=== PATIENT | female | born 1960 | race Caucasian/White ===

== ENCOUNTER 2018-03-16 09:04 | Inpatient (IN) | payer OTHER ==
[~2018-03-16] VITALS: Ht 160 cm; Wt 71.9 kg
[2018-03-16 09:10] VITALS: Ht 160 cm; Wt 71.9 kg
[2018-03-16 11:18] LABS: BASOPHIL % 0.5 % (0-2); PLATELET COUNT 209 x10^3mcL (130-400); RED CELL DISTRIBUTION WIDTH 13.3 % (11.5-14.5)
[2018-03-16 11:25] LABS: UA SPECIFIC GRAVITY 1.015 (1.005-1.035); microscopic required? YES; urine erythrocyte 2+ (NEGATIVE)
[2018-03-16 11:38] LABS: AMPHETAMINE QUAL UR NONE DETECTED (NEG <=1000)
[2018-03-16 11:45] LABS: FREE T4 1.05 ng/dL (0.76-1.46); FREE THYROXINE INDEX 2.6 ug/dL (1.4-4.5); T4(THYROXINE) 7.5 ug/dL (4.7-13.3)
[2018-03-16 12:10] LABS: T3 TOTAL 1.39 ng/mL
[2018-03-16 12:15] LABS: CHOLESTEROL/HDL RATIO 3.6; MAGNESIUM 2.1 mg/dL (1.8-2.4); PHOSPHOROUS 3.4 mg/dL (2.5-4.9)
[2018-03-16 12:17] LABS: CALCIUM 8.8 mg/dL (8.5-10.1); CARBON DIOXIDE 24.6 mmol/L (21-32); CHLORIDE SERUM 108 mmol/L (98-107); CREATININE SERUM 0.6 mg/dL (0.6-1.0); GFR1 > 60 mL/min; GLUCOSE SERUM 96 mg/dL (74-106); POTASSIUM SERUM 3.9 mmol/L (3.5-5.1); SODIUM SERUM 145 mmol/L (136-145)
[2018-03-16 12:19] LABS: ALBUMIN 3.6 g/dL (3.4-5.0); ALKALINE PHOSPHATASE 105 U/L (46-116); ALT/SGPT 22 U/L (14-59); AST/SGOT 21 U/L (15-37); BILIRUBIN TOTAL 0.42 mg/dL (0.20-1.00); TOTAL PROTEIN, SERUM 7.3 g/dL (6.4-8.2)
[2018-03-16 12:46] VITALS: BP 156/69
[2018-03-16] MEDS ORDERED: HYDROCHLOROTHIA25 MG PO (16:28)
[2018-03-16] MEDS ORDERED: AMLODIPINE BESYL5 M2 PO (16:29)
[2018-03-16] MEDS ORDERED: LOSARTAN POTASS25 M1 PO (16:30)
[2018-03-16] MEDS ORDERED: SIMVASTATIN10 M1 PO (16:31)
[2018-03-16 17:44] VITALS: BP 143/69
[2018-03-16 20:18] VITALS: BP 127/56
[2018-03-17 05:24] VITALS: BP 138/71
[2018-03-17 06:35] LABS: BASOPHIL % 0.6 % (0-2); PLATELET COUNT 199 x10^3mcL (130-400); RED CELL DISTRIBUTION WIDTH 13.4 % (11.5-14.5)
[2018-03-17 07:29] LABS: CARBON DIOXIDE 26.7 mmol/L (21-32); CHLORIDE SERUM 110 mmol/L (98-107); CREATININE SERUM 0.7 mg/dL (0.6-1.0); GFR1 > 60 mL/min; GLUCOSE SERUM 86 mg/dL (74-106); POTASSIUM SERUM 3.7 mmol/L (3.5-5.1); SODIUM SERUM 142 mmol/L (136-145)
[2018-03-17 07:30] LABS: CALCIUM 8.3 mg/dL (8.5-10.1)
[2018-03-17 08:31] VITALS: BP 111/65
[2018-03-17 09:31] VITALS: BP 111/65
[2018-03-17] MEDS ORDERED: LEVAQUIN750 MG PO (10:05)
[2018-03-17] MEDS ORDERED: LAC PO (10:06)
== END 2018-03-17 11:40 | disposition home or self-care (01) | DRG 203 ==
LOC: ED 09:04 → DU 10:08
PROVIDERS: Emergency Medicine; Family Medicine
DX: M94.0 Chondrocostal junction syndrome [Tietze] (principal); N17.0 Acute kidney failure with tubular necrosis; N39.0 Urinary tract infection, site not specified; I10 Essential (primary) hypertension; R31.29 Other microscopic hematuria; E78.5 Hyperlipidemia, unspecified; R73.03 Prediabetes; Z68.28 Body mass index [BMI] 28.0-28.9, adult
CPT/HCPCS: 83880; 84439; J0696; J3010; J7030; Q0092

== ENCOUNTER 2019-03-28 09:28 | Emergency (ER) | payer OTHER ==
[~2019-03-28] VITALS: Ht 162.6 cm; Wt 74.8 kg
[~2019-03-28 09:28] MED LIST: AMLODIPINE BESYL5 M2 PO; HYDROCHLOROTHIA25 MG PO; LAC PO; LEVAQUIN750 MG PO; LOSARTAN POTASS25 M1 PO; SIMVASTATIN10 M1 PO
[2019-03-28 09:51] VITALS: Ht 162.6 cm; Wt 74.8 kg
[2019-03-28 11:50] VITALS: BP 142/79
== END 2019-03-28 11:50 | disposition home or self-care (01) ==
LOC: ED 09:28
DX: S29.8XXA Other specified injuries of thorax, initial encounter (principal); I10 Essential (primary) hypertension; E78.00 Pure hypercholesterolemia, unspecified; Z98.890 Other specified postprocedural states; W01.0XXA Fall on same level from slipping, tripping and stumbling without subsequent striking against object, initial encounter; Y93.89 Activity, other specified; Y92.89 Other specified places as the place of occurrence of the external cause; Y99.8 Other external cause status
CPT/HCPCS: J1885

== ENCOUNTER 2019-06-27 06:02 | Emergency (ER) | payer MEDICAID ==
[~2019-06-27] VITALS: Ht 157.5 cm; Wt 73.5 kg
[2019-06-27 06:06] VITALS: Ht 157.5 cm; Wt 73.5 kg
[2019-06-27 07:04] LABS: BASOPHIL % 0.5 % (0-2); PLATELET COUNT 197 x10^3mcL (130-400); RED CELL DISTRIBUTION WIDTH 13.6 % (11.5-14.5)
[2019-06-27 07:16] LABS: CALCIUM 8.5 mg/dL (8.5-10.1); CARBON DIOXIDE 24.8 mmol/L (21-32); CHLORIDE SERUM 109 mmol/L (98-107); CREATININE SERUM 0.8 mg/dL (0.6-1.0); GFR1 > 60 mL/min; GLUCOSE SERUM 127 mg/dL (74-106); POTASSIUM SERUM 3.3 mmol/L (3.5-5.1); SODIUM SERUM 143 mmol/L (136-145)
[2019-06-27 07:20] LABS: ALBUMIN 3.4 g/dL (3.4-5.0); ALKALINE PHOSPHATASE 87 U/L (46-116); ALT/SGPT 17 U/L (14-59); AST/SGOT 11 U/L (15-37); BILIRUBIN TOTAL 0.39 mg/dL (0.20-1.00)
[2019-06-27 08:32] VITALS: BP 130/65
== END 2019-06-27 08:32 | disposition home or self-care (01) ==
LOC: ED 06:02
PROVIDERS: Emergency Medicine
DX: H81.10 Benign paroxysmal vertigo, unspecified ear (principal); I10 Essential (primary) hypertension; E78.00 Pure hypercholesterolemia, unspecified
CPT/HCPCS: J2765; J7030

== ENCOUNTER 2019-08-06 22:35 | Emergency (ER) | payer OTHER ==
[~2019-08-06] VITALS: Ht 172.7 cm; Wt 72.6 kg
[2019-08-06 22:41] VITALS: Ht 172.7 cm; Wt 72.6 kg
[2019-08-07 01:59] LABS: BASOPHIL % 0.2 % (0-2); PLATELET COUNT 204 x10^3mcL (130-400); RED CELL DISTRIBUTION WIDTH 12.3 % (11.5-14.5)
[2019-08-07 02:10] LABS: CALCIUM 8.7 mg/dL (8.5-10.1); CARBON DIOXIDE 28.4 mmol/L (21-32); CHLORIDE SERUM 105 mmol/L (98-107); CREATININE SERUM 0.8 mg/dL (0.6-1.0); GFR1 > 60 mL/min; GLUCOSE SERUM 118 mg/dL (74-106); POTASSIUM SERUM 4.1 mmol/L (3.5-5.1); SODIUM SERUM 141 mmol/L (136-145)
[2019-08-07 02:16] LABS: ALBUMIN 3.8 g/dL (3.4-5.0); ALKALINE PHOSPHATASE 98 U/L (46-116); ALT/SGPT 18 U/L (14-59); AST/SGOT 18 U/L (15-37); BILIRUBIN TOTAL 0.39 mg/dL (0.20-1.00); HDL CHOLESTEROL 44 mg/dL (40-60); TOTAL PROTEIN, SERUM 7.7 g/dL (6.4-8.2)
[2019-08-07 02:17] LABS: CHOLESTEROL 203 mg/dL (<200)
[2019-08-07 03:50] VITALS: BP 136/63
== END 2019-08-07 03:50 | disposition home or self-care (01) ==
LOC: ED 22:35
PROVIDERS: Emergency Medicine
DX: R42 Dizziness and giddiness (principal); I10 Essential (primary) hypertension; E78.00 Pure hypercholesterolemia, unspecified
CPT/HCPCS: J2405; J8597; Q0092